=== PATIENT | male | born 1980 | race African-American/Black ===

== ENCOUNTER 2020-03-21 18:30 | Emergency (ER) | payer BC ==
[~2020-03-21] VITALS: Ht 165.1 cm; Wt 65.0 kg
[2020-03-21 19:41] LABS: BASO # 0.1 x10^3/uL (0.0-0.2); BASO % 1 % (0-3); EOS # 0.1 x10^3/uL (0.0-0.7); EOS % 1 % (0-3); HEMATOCRIT 38.5 % (39.0-53.0); LYMPH # 2.3 x10^3/uL (1.0-4.8); LYMPH % 36 % (24-48); MEAN CORPUSCULAR HEMOGLOBIN 33 pg (25-35); MEAN CORPUSCULAR HGB CONC 34 g/dL (31-37); MEAN CORPUSCULAR VOLUME 97 fL (79-100); MONO # 0.4 x10^3/uL (0.0-1.1); MONO % 6 % (0-9); NEUT # 3.6 x10^3/uL (1.8-7.7); NEUT % 56 % (31-73); PLATELET COUNT 243 x10^3/uL (140-400); RED BLOOD COUNT 3.96 x10^6/uL (4.30-5.70); RED CELL DISTRIBUTION WIDTH 13.7 % (11.5-14.5); WHITE BLOOD COUNT 6.4 x10^3/uL (4.0-11.0)
[2020-03-21 19:52] LABS: CREATININE 0.9 mg/dL (0.7-1.3); GFR 93.5; POTASSIUM 3.7 mmol/L (3.5-5.1)
[2020-03-21 19:58] LABS: ALBUMIN/GLOBULIN RATIO 0.8 (1.0-1.7); MAGNESIUM 2.2 mg/dL (1.8-2.4); TOTAL BILIRUBIN 0.4 mg/dL (0.2-1.0); TOTAL PROTEIN 6.9 g/dL (6.4-8.2)
[2020-03-21] MEDS ORDERED: NITROGLYCERIN SUBLINGUAL 0.4 MG BOTTLE OF 25. SL PRN (20:00)
[2020-03-21] MEDS ORDERED: ASPIRIN 325 MG TABLET PO ONE (20:00)
[2020-03-21] MEDS ORDERED: MORPHINE SULFATE 2 MG/ML VIAL. IV/SQ PRN (20:00)
--- NOTE | 2020-03-21 20:15 | PHYS DOC ---
Past Medical History Past Medical History: No Pertinent History Past Surgical History: No Surgical History Smoking Status: Current Every Day Smoker Alcohol Use: Occasionally General Adult EDM: Chief Complaint: CHEST PAIN HPI: HPI: Patient is a 40 year old male with history of smoking who presents the ED today complaining of 5 out of 10 squeezing left-sided chest pain that radiated to his neck and left arm that occurred yesterday at 10 PM. Patient states he was laying in bed when he experienced the pain. He states he has history of similar pain before and it went away on its own. He states the pain went away last night after a couple minutes. He states he is in the ED because the wanted him to be evaluated. Currently he is denying pain in the ED. Denies any cough or shortness of breath. Review of Systems: Review of Systems: Constitutional: Denies fever or chills. [] Eyes: Denies change in visual acuity. [] HENT: Denies nasal congestion or sore throat. [] Respiratory: Denies cough or shortness of breath. [] Cardiovascular: Patient reports chest pain GI: Denies abdominal pain, nausea, vomiting, bloody stools or diarrhea. [] : Denies dysuria. [] Musculoskeletal: Denies back pain or joint pain. [] Integument: Denies rash. [] Neurologic: Denies headache, focal weakness or sensory changes. [] Psychiatric: Denies depression or anxiety. [] Heart Score: HEART Score for Chest Pain: HEART Score for Chest Pain Response (Comments) Value History Slighlty/Non-Suspicious 0 ECG Normal 0 Age < 45 0 Risk Factors No Risk Factors 0 Troponin < Normal Limit 0 Total 0 Risk Factors: Risk Factors: DM, Current or recent (<one month) smoker, HTN, HLP, family history of CAD, obesity. Risk Scores: Score 0 - 3: 2.5% MACE over next 6 weeks - Discharge Home Score 4 - 6: 20.3% MACE over next 6 weeks - Admit for Clinical Observation Score 7 - 10: 72.7% MACE over next 6 weeks - Early Invasive Strategies Current Medications: Current Medications Medications (Trade) Dose Ordered Sig/Servando Start Time Stop Time Status Last Admin Dose Admin Aspirin (Stephanie Aspirin) 325 mg 1X ONCE 03/21/20 20:00 03/21/20 20:01 DC 11/23/20 19:39 325 MG Morphine Sulfate (Morphine Sulfate) 2 mg PRN Q15MIN PRN 03/21/20 20:00 03/22/20 19:59 Nitroglycerin (Nitrostat) 0.4 mg PRN Q5MIN PRN 03/21/20 20:00 03/22/20 19:59 Allergies: Allergies: Allergies Coded Allergies Type Severity Reaction Last Updated Verified No Known Drug Allergies 03/21/20 No Physical Exam: PE: Constitutional: Well developed, well nourished, no acute distress, non-toxic appearance. [] HENT: Normocephalic, atraumatic, bilateral external ears normal, oropharynx moist, no oral exudates, nose normal. [] Eyes: PERRLA, EOMI, conjunctiva normal, no discharge. [] Neck: Normal range of motion, no tenderness, supple, no stridor. [] Cardiovascular:Heart rate regular rhythm, no murmur [] Lungs & Thorax: Bilateral breath sounds clear to auscultation [] Abdomen: Bowel sounds normal, soft, no tenderness, no masses, no pulsatile masses. [] Skin: Warm, dry, no erythema, no rash. [] Back: No tenderness, no CVA tenderness. [] Extremities: No tenderness, no cyanosis, no clubbing, ROM intact, no edema. [] Neurologic: Alert and oriented X 3, normal motor function, normal sensory function, no focal deficits noted. [] Psychologic: Affect normal, judgement normal, mood normal. [] Current Patient Data: Labs: Laboratory Tests Test 03/21/20 19:33 White Blood Count 6.4 x10^3/uL (4.0-11.0) Red Blood Count 3.96 x10^6/uL (4.30-5.70) L Hemoglobin 13.0 g/dL (13.0-17.5) Hematocrit 38.5 % (39.0-53.0) L Mean Corpuscular Volume 97 fL (79-100) Mean Corpuscular Hemoglobin 33 pg (25-35) Mean Corpuscular Hemoglobin Concent 34 g/dL (31-37) Red Cell Distribution Width 13.7 % (11.5-14.5) Platelet Count 243 x10^3/uL (140-400) Neutrophils (%) (Auto) 56 % (31-73) Lymphocytes (%) (Auto) 36 % (24-48) Monocytes (%) (Auto) 6 % (0-9) Eosinophils (%) (Auto) 1 % (0-3) Basophils (%) (Auto) 1 % (0-3) Neutrophils # (Auto) 3.6 x10^3/uL (1.8-7.7) Lymphocytes # (Auto) 2.3 x10^3/uL (1.0-4.8) Monocytes # (Auto) 0.4 x10^3/uL (0.0-1.1) Eosinophils # (Auto) 0.1 x10^3/uL (0.0-0.7) Basophils # (Auto) 0.1 x10^3/uL (0.0-0.2) D-Dimer (Linda) < 0.27 ug/mlFEU Sodium Level 140 mmol/L (136-145) Potassium Level 3.7 mmol/L (3.5-5.1) Chloride Level 105 mmol/L (98-107) Carbon Dioxide Level 29 mmol/L (21-32) Anion Gap 6 (6-14) Blood Urea Nitrogen 11 mg/dL (8-26) Creatinine 0.9 mg/dL (0.7-1.3) Estimated GFR (Cockcroft-Gault) 93.5 BUN/Creatinine Ratio 12 (6-20) Glucose Level 98 mg/dL (70-99) Calcium Level 9.0 mg/dL (8.5-10.1) Magnesium Level 2.2 mg/dL (1.8-2.4) Total Bilirubin 0.4 mg/dL (0.2-1.0) Aspartate Amino Transferase (AST) 21 U/L (15-37) Alanine Aminotransferase (ALT) 26 U/L (16-63) Alkaline Phosphatase 89 U/L (46-116) Troponin I Quantitative < 0.017 ng/mL (0.000-0.055) UW-Vzf-V-Type Natriuretic Peptide 56 pg/mL (0-124) Total Protein 6.9 g/dL (6.4-8.2) Albumin 3.0 g/dL (3.4-5.0) L Albumin/Globulin Ratio 0.8 (1.0-1.7) L Thyroid Stimulating Hormone (TSH) 0.232 uIU/mL (0.358-3.74) L Laboratory Tests 03/21/20 19:33 Laboratory Tests 03/21/20 19:33 Vital Signs: Vital Signs Date Time Temp Pulse Resp B/P (MAP) Pulse Ox O2 Delivery O2 Flow Rate FiO2 03/21/20 19:18 98.1 77 24 128/76 (93) 97 Room Air 98.1 EKG: EK interpreted by Dr. Rivera sinus rhythm HR 75 no STEMI[] Radiology/Procedures: Radiology/Procedures: []PROCEDURE: CHEST AP ONLY CHEST AP ONLY Clinical History: Reason: left sided chest pain x2 days / Spl. Instructions: / History: Technique: AP view of the chest was obtained at 03/21/2020 7:27 PM. Comparison: None. Findings: The cardiomediastinal silhouette is normal. The pulmonary vasculature is normal. There is patchy opacities in the lung bases and mild elevation of the left hemidiaphragm. Impression: Basal infiltrates could be discoid atelectasis or pneumonia. Electronically signed by: Lakeisha Troncoso III, MD (03/21/2020 8:13 PM) [facility] DICTATED and SIGNED BY: LAKEISHA TRONCOSO III, MD DATE: 03/21/[id number] 0 Course & Med Decision Making: Course & Med Decision Making Pertinent Labs and Imaging studies reviewed. (See chart for details) This is a 40-year-old male patient presenting to the ED today with left-sided chest pain that occurred yesterday. EKG is negative, troponin is normal, CBC CMP with no acute findings. Chest x-ray interpreted by radiologist was noted for possible bilateral pneumonia. Patient was tested for Covid, started on Rocephin and azithromycin. Vitals are stable with O2 sats above 96% on room air. Was discharged to home. Instructed to quarantine himself until he gets results. Provided return precautions and discharged in stable condition. Dragon Disclaimer: Dragon Disclaimer: This electronic medical record was generated, in whole or in part, using a voice recognition dictation system. Departure Departure Impression: Primary Impression: Person under investigation for COVID-19 Additional Impressions: Bilateral pulmonary infiltrates on chest x-ray Chest pain Qualified Codes: R07.9 - Chest pain, unspecified Disposition: 01 DC HOME SELF CARE/HOMELESS Condition: STABLE Referrals: EHNRIQUE BURKS MD follow up in one week Patient Instructions: Chest Pain (Nonspecific), [id number], Pneumonia, Adult Additional Instructions: You were evaluated in the emergency room for chest pain, you have possible pneumonia showing on chest xray. We will put you on antibiotics, take them as prescribed. You were tested for COVID-19, quarantine yourself until you hear f rom us with the results. Come back to the ED at any point symptoms worsen otherwise follow-up with the assistant operator provided and your primary care doctor Scripts Azithromycin (AZITHROMYCIN TABLET) 250 Mg Tablet 1 PKG PO UD for 5 Days, #6 TAB 0 Refills 2 the first day followed by 1 for days 2-5 Prov: CLAU FARMER APRN 03/21/20 CLAU FARMER APRN Mar 21, 2020 20:15
[2020-03-21 20:19] LABS: BILIRUBIN,URINE NEGATIVE (NEG); CLARITY,URINE CLOUDY; COLOR,URINE YELLOW; NITRITE,URINE NEGATIVE (NEG); PROTEIN,URINE NEGATIVE (NEG-TRACE)
[2020-03-21 20:26] LABS: AMPHETAMINE/METHAMPHETAMINE NEG (NEG); BARBITURATES NEG (NEG); BENZODIAZEPINES NEG (NEG); CANNABINOIDS POS (NEG); COCAINE NEG (NEG); METHADONE NEG (NEG); OPIATES NEG (NEG); PHENCYCLIDINE NEG (NEG)
[2020-03-21 20:28] LABS: BACTERIA,URINE 0 /HPF (0-FEW)
[2020-03-21] MEDS ORDERED: AZITHRMYCN 500MG IVPB FOR OMNI 250 ML IV ONE (20:30)
[2020-03-21] MEDS ORDERED: cefTRIAXone IV Push 1 GM VIAL. IVP ONE (20:30)
[2020-03-21 21:00] VITALS: BP 108/84
[2020-03-21] MEDS ORDERED: AZIT250T6 PO (21:14)
--- NOTE | 2020-03-22 11:35 | EKG ---
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
== END 2020-03-21 21:54 | disposition home or self-care (01) ==
LOC: ER 18:30
DX: R07.89 Other chest pain (principal); Z20.828 Contact with and (suspected) exposure to other viral communicable diseases; R91.8 Other nonspecific abnormal finding of lung field; F17.200 Nicotine dependence, unspecified, uncomplicated
CPT/HCPCS: 36415; 71045; 80053; 80307; 81001; 83735; 83880; 84443; 84484; 85025; 85379; 87426; 93005; 96365; 96375; 99285; J0456; J0696; U0003; C9803

== ENCOUNTER 2020-08-28 04:21 | Emergency (ER) | payer BC ==
[~2020-08-28] VITALS: Ht 165.1 cm; Wt 66.0 kg
[~2020-08-28 04:21] MED LIST: AZIT250T6 PO
--- NOTE | 2020-08-28 04:36 | PHYS DOC ---
Past Medical History Past Medical History: No Pertinent History (YOHANNES UMANA DO) Past Surgical History: No Surgical History (YOHANNES UMANA DO) Smoking Status: Current Every Day Smoker Alcohol Use: Occasionally (YOHANNES UMANA DO) General Adult EDM: Chief Complaint: NAUSEA/VOMITING/DIARRHEA HPI: HPI: Patient is a 40-year-old male presenting for abdominal pain. Onset was approximately 48 hours ago, states he binge drink heavily Saturday evening. Denies alcohol dependence or abuse, does admit to occasionally binge drinking. Reports drinking a large amount of tequila, beer and other alcohols. States he woke up extremely hung over with abdominal pain and ongoing nausea with numerous episodes of nonbloody nonbilious emesis. He has been unable to tolerate p.o. intake. He has not drink any alcohol since Saturday evening, has no history of alcohol withdrawals or delirium tremens. No prior abdominal surgeries, no recent fever, travel, or sick contacts (YOHANNES UMANA DO) Review of Systems: Review of Systems: Fourteen body systems of review of systems have been reviewed. See HPI for pertinent positives and negative responses, other peñaloza all other systems are negative, non-pertinent or non-contributory (YOHANNES UMANA DO) Heart Score: C/O Chest Pain: No HEART Score for Chest Pain: HEART Score for Chest Pain Response (Comments) Value History Slighlty/Non-Suspicious 0 ECG Normal 0 Age < 45 0 Risk Factors No Risk Factors 0 Troponin < Normal Limit 0 Total 0 Risk Factors: Risk Factors: DM, Current or recent (<one month) smoker, HTN, HLP, family history of CAD, obesity. Risk Scores: Score 0 - 3: 2.5% MACE over next 6 weeks - Discharge Home Score 4 - 6: 20.3% MACE over next 6 weeks - Admit for Clinical Observation Score 7 - 10: 72.7% MACE over next 6 weeks - Early Invasive Strategies (YOHANNES UMANA DO) Allergies: Allergies: Allergies Coded Allergies Type Severity Reaction Last Updated Verified No Known Drug Allergies 03/21/20 No (YOHANNES UMANA DO) Physical Exam: PE: Constitutional: Well developed, well nourished, no acute distress, non-toxic appearance. HENT: Normocephalic, atraumatic, bilateral external ears normal, oropharynx moist, no oral exudates, nose normal. Eyes: PERRLA, EOMI, conjunctiva normal, no discharge. Neck: Normal range of motion, no tenderness, supple, no stridor. Cardiovascular: Heart rate regular, sinus rhythm, no murmurs rubs or gallops Lungs & Thorax: Bilateral breath sounds clear to auscultation Abdomen: Bowel sounds normal, soft, no tenderness, no masses, no pulsatile masses. Nonsurgical abdomen, no peritoneal signs Skin: Warm, dry, no erythema, no rash. Back: No tenderness, no CVA tenderness. Extremities: No tenderness, no cyanosis, no clubbing, ROM intact, no edema. Neurologic: Alert and oriented X 3, grossly normal motor & sensory function, no focal deficits noted. Psychologic: Affect normal, judgement normal, mood normal. (YOHANNES UMANA DO) Current Patient Data: Labs: Laboratory Tests Test 08/28/20 04:50 White Blood Count 8.7 x10^3/uL Red Blood Count 4.62 x10^6/uL Hemoglobin 15.1 g/dL Hematocrit 44.7 % Mean Corpuscular Volume 97 fL Mean Corpuscular Hemoglobin 33 pg Mean Corpuscular Hemoglobin Concent 34 g/dL Red Cell Distribution Width 13.5 % Platelet Count 342 x10^3/uL Neutrophils (%) (Auto) 76 % Lymphocytes (%) (Auto) 15 % Monocytes (%) (Auto) 9 % Eosinophils (%) (Auto) 0 % Basophils (%) (Auto) 0 % Neutrophils # (Auto) 6.6 x10^3/uL Lymphocytes # (Auto) 1.3 x10^3/uL Monocytes # (Auto) 0.8 x10^3/uL Eosinophils # (Auto) 0.0 x10^3/uL Basophils # (Auto) 0.0 x10^3/uL Sodium Level 143 mmol/L Potassium Level 3.7 mmol/L Chloride Level 98 mmol/L Carbon Dioxide Level 25 mmol/L Anion Gap 20 Blood Urea Nitrogen 23 mg/dL Creatinine 1.2 mg/dL Estimated GFR (Cockcroft-Gault) 81.1 BUN/Creatinine Ratio 19 Glucose Level 137 mg/dL Calcium Level 9.2 mg/dL Total Bilirubin 0.6 mg/dL Aspartate Amino Transf (AST/SGOT) 40 U/L Alanine Aminotransferase (ALT/SGPT) 46 U/L Alkaline Phosphatase 98 U/L Troponin I Quantitative < 0.017 ng/mL Total Protein 7.9 g/dL Albumin 4.0 g/dL Albumin/Globulin Ratio 1.0 Lipase 104 U/L Ethyl Alcohol Level < 10 mg/dL Current Medications Medications (Trade) Dose Ordered Sig/Servando Route PRN Reason Start Time Stop Time Status Last Admin Dose Admin Sodium Chloride 1,000 ml @ 0 mls/hr 1X ONCE IV 08/28/20 04:45 08/28/20 04:46 DC 08/28/20 05:06 Ondansetron HCl (Zofran) 4 mg 1X ONCE IVP 08/28/20 05:00 08/28/20 05:01 DC 08/28/20 05:05 Fentanyl Citrate (Fentanyl 2ml Vial) 50 mcg 1X ONCE IVP 08/28/20 05:15 08/28/20 05:16 DC 08/28/20 05:19 Iohexol (Omnipaque 300 Mg/ml) 75 ml 1X ONCE IV 08/28/20 05:30 08/28/20 05:33 DC 08/28/20 05:50 Info (CONTRAST GIVEN -- Rx MONITORING) 1 each PRN DAILY PRN MC SEE COMMENTS 08/28/20 05:45 08/30/20 05:44 Vital Signs: Vital Signs Date Time Temp Pulse Resp B/P (MAP) Pulse Ox O2 Delivery O2 Flow Rate FiO2 08/28/20 05:19 20 99 Room Air Vital Signs Date Time Temp Pulse Resp B/P (MAP) Pulse Ox O2 Delivery O2 Flow Rate FiO2 08/28/20 05:19 20 99 Room Air (YOHANNES UMANA DO) EKG: EKG: EKG ordered and interpreted by myself at 0451 hrs. as sinus rhythm at 46 bpm, unremarkable intervals, left axis deviation, no acute ischemic findings, no STEMI (YOHANNES UMANA DO) Radiology/Procedures: Radiology/Procedures: INDICATION: Reason: N/V / Spl. Instructions: / History: COMPARISON: February 2020 FINDINGS: Single view of chest obtained. No focal airspace consolidation. Cardiomediastinal contour unremarkable. No acute osseous abnormality. IMPRESSION: * No focal airspace consolidation or edema. Electronically signed by: Campos Donahue MD (08/28/2020 5:21 AM) [id number] ///////////////////////////// INDICATION: Reason: EPIGASTRIC AP, N/V/D, OMNI 300, 75 ML IV / Spl. Instructions: / History: . COMPARISON: None. TECHNIQUE: Axial CT images obtained through the abdomen and pelvis with contrast. One or more of the following individualized dose reduction techniques were utilized for this examination: 1. Automated exposure control; 2. Adjustment of the mA and/or kV according to patient size; 3. Use of iterative reconstruction technique. FINDINGS: Mild basilar atelectasis. Scattered calcific atherosclerosis without abdominal aortic aneurysm. Liver is mildly low density. Nonspecific but can be seen with mild fatty infiltration. The pancreas enhances. Spleen is not enlarged. No hydronephrosis. Urinary bladder is partially distended. The patient has very little intra-abdominal fat which limits evaluation. The appendix is not well seen secondary to lack of adjacent fat and unopacified loops of bowel in the region. There are some scattered fluid-filled loops of small bowel seen without a high-grade transition point to suggest obstruction. Degenerative changes of the spine. 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 Sclerotic lesion at the left proximal femur measuring approximately 17 mm. IMPRESSION: * There is some fluid-filled mildly prominent loops of small bowel but no high- grade transition point to suggest obstruction. * The appendix is not well seen secondary to lack of intra-abdominal fat as well as unopacified loops of bowel in the right lower quadrant. * No hydronephrosis. * Sclerotic lesion at the left proximal femur. Nonspecific appearance with common causes including chondroid matrix lesion, bone infarct or bone island. Electronically signed by: Campos Donahue MD (08/28/2020 6:04 AM) [id number] (YOHANNES UMANA DO) Radiology/Procedures: INDICATION: Reason: EPIGASTRIC AP, N/V/D, OMNI 300, 75 ML IV / Spl. Instructions: / History: . COMPARISON: None. TECHNIQUE: Axial CT images obtained through the abdomen and pelvis with contrast. One or more of the following individualized dose reduction techniques were utilized for this examination: 1. Automated exposure control; 2. Adjustment of the mA and/or kV according to patient size; 3. Use of iterative reconstruction technique. FINDINGS: Mild basilar atelectasis. Scattered calcific atherosclerosis without abdominal aortic aneurysm. Liver is mildly low density. Nonspecific but can be seen with mild fatty infiltration. The pancreas enhances. Spleen is not enlarged. No hydronephrosis. Urinary bladder is partially distended. The patient has very little intra-abdominal fat which limits evaluation. The appendix is not well seen secondary to lack of adjacent fat and unopacified loops of bowel in the region. There are some scattered fluid-filled loops of small bowel seen without a high-grade transition point to suggest obstruction. Degenerative changes of the spine. 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 Sclerotic lesion at the left proximal femur measuring approximately 17 mm. IMPRESSION: * There is some fluid-filled mildly prominent loops of small bowel but no high- grade transition point to suggest obstruction. * The appendix is not well seen secondary to lack of intra-abdominal fat as well as unopacified loops of bowel in the right lower quadrant. * No hydronephrosis. * Sclerotic lesion at the left proximal femur. Nonspecific appearance with common causes including chondroid matrix lesion, bone infarct or bone island. (TEJA CUNNINGHAM MD) Course & Med Decision Making: Course & Med Decision Making Hemodynamically stable patient presenting with HPI concerning for abdominal pain with nausea and vomit status post binge drinking, physical exam nonconcerning for emergent or surgical findings IV established, IV fluid rehydration and 4 mg morphine administered ER work-up obtained and pending full completion at time of my signout to oncoming physician. Patient pending second liter of IV normal saline fluid rehydration. Please defer to oncoming physician's documentation regarding future care of patient while in our ER (YOHANNES UMANA DO) Course & Med Decision Making Accepted care at shift change, patient pending second liter of fluids. Patient tolerating p.o. (TEJA CUNNINGHAM MD) Dragon Disclaimer: Dragon Disclaimer: This electronic medical record was generated, in whole or in part, using a voice recognition dictation system. (YOHANNES UMANA DO) Departure Departure Impression: Primary Impression: Nausea & vomiting Disposition: 01 HOME / SELF CARE / HOMELESS Condition: STABLE Referrals: Dhaval WILKINSON MD (PCP) Patient Instructions: Nausea and Vomiting Scripts Ondansetron (ONDANSETRON ODT) 4 Mg Tab.rapdis 1 TAB PO PRN Q6-8HRS PRN for NAUSEA for 3 Days, #8 TAB Prov: TEJA CUNNINGHAM MD 08/28/20 YOHANNES UMANA DO August 28, 2020 04:36 TEJA CUNNINGHAM MD August 28, 2020 07:29
[2020-08-28] MEDS ORDERED: IV NORMAL SALINE 1000ML BAG 1,000 ML IV ONE ×2 (04:45→06:30)
[2020-08-28] MEDS ORDERED: ONDANSETRON PF 4 MG/2 ML VIAL. IVP ONE (05:00)
[2020-08-28 05:06] LABS: BASO % 0 % (0-3); EOS % 0 % (0-3); HEMATOCRIT 44.7 % (39.0-53.0); HEMOGLOBIN 15.1 g/dL (13.0-17.5); LYMPH # 1.3 x10^3/uL (1.0-4.8); LYMPH % 15 % (24-48); MEAN CORPUSCULAR HEMOGLOBIN 33 pg (25-35); MEAN CORPUSCULAR HGB CONC 34 g/dL (31-37); MEAN CORPUSCULAR VOLUME 97 fL (79-100); MONO # 0.8 x10^3/uL (0.0-1.1); MONO % 9 % (0-9); NEUT # 6.6 x10^3/uL (1.8-7.7); NEUT % 76 % (31-73); PLATELET COUNT 342 x10^3/uL (140-400); RED BLOOD COUNT 4.62 x10^6/uL (4.30-5.70); RED CELL DISTRIBUTION WIDTH 13.5 % (11.5-14.5); WHITE BLOOD COUNT 8.7 x10^3/uL (4.0-11.0)
[2020-08-28] MEDS ORDERED: fentaNYL PF VIAL 100 MCG/2 ML VIAL IVP ONE (05:15)
[2020-08-28 05:20] LABS: CALCIUM 9.2 mg/dL (8.5-10.1); CREATININE 1.2 mg/dL (0.7-1.3); GFR 81.1; POTASSIUM 3.7 mmol/L (3.5-5.1)
--- NOTE | 2020-08-28 05:23 | RAD ---
INDICATION: Reason: N/V / Spl. Instructions: / History: COMPARISON: February 2020 FINDINGS: Single view of chest obtained. No focal airspace consolidation. Cardiomediastinal contour unremarkable. No acute osseous abnormality. IMPRESSION: * No focal airspace consolidation or edema. Electronically signed by: Campos Donahue MD (08/28/2020 5:21 AM) [id number]
[2020-08-28 05:26] LABS: TOTAL BILIRUBIN 0.6 mg/dL (0.2-1.0); TOTAL PROTEIN 7.9 g/dL (6.4-8.2)
--- NOTE | 2020-08-28 05:27 | EKG ---
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
[2020-08-28] MEDS ORDERED: IOHEXOL 300 MG/ML 100ML VIAL. IV ONE (05:30)
[2020-08-28] MEDS ORDERED: CONTRAST GIVEN. MC PRN (05:45)
--- NOTE | 2020-08-28 06:07 | RAD ---
INDICATION: Reason: EPIGASTRIC AP, N/V/D, OMNI 300, 75 ML IV / Spl. Instructions: / History: . COMPARISON: None. TECHNIQUE: Axial CT images obtained through the abdomen and pelvis with contrast. One or more of the following individualized dose reduction techniques were utilized for this examinat ion: 1. Automated exposure control; 2. Adjustment of the mA and/or kV according to patient size; 3 . Use of iterative reconstruction technique. FINDINGS: Mild basilar atelectasis. Scattered calcific atherosclerosis without abdominal aortic aneurysm. Liver is mildly low density. Nonspecific but can be seen with mild fatty infiltration. The pancreas enhances. Spleen is not enlarged. No hydronephrosis. Urinary bladder is partially distended. The patient has very little intra-abdominal fat which limits evaluation. The appendix is not well see n secondary to lack of adjacent fat and unopacified loops of bowel in the region. There are some scat tered fluid-filled loops of small bowel seen without a high-grade transition point to suggest obstruc tion. Degenerative changes of the spine. 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 Sclerotic lesion at the left proximal femur measuring approximately 17 mm. IMPRESSION: * There is some fluid-filled mildly prominent loops of small bowel but no high-grade transition poin t to suggest obstruction. * The appendix is not well seen secondary to lack of intra-abdominal fat as well as unopacified loop s of bowel in the right lower quadrant. * No hydronephrosis. * Sclerotic lesion at the left proximal femur. Nonspecific appearance with common causes including c hondroid matrix lesion, bone infarct or bone island. Electronically signed by: Campos Donahue MD (08/28/2020 6:04 AM) [id number]
[2020-08-28 07:06] VITALS: BP 144/79
[2020-08-28 07:09] LABS: BILIRUBIN,URINE NEGATIVE (NEG); CLARITY,URINE CLEAR; COLOR,URINE YELLOW; NITRITE,URINE NEGATIVE (NEG); PROTEIN,URINE 30 mg/dL (NEG-TRACE); UROBILINOGEN,URINE 0.2 mg/dL (0.2 mg/dL)
[2020-08-28 07:20] LABS: BACTERIA,URINE 0 /HPF (0-FEW); RBC,URINE 0 /HPF (0-2); WBC,URINE 0 /HPF (0-4)
[2020-08-28] MEDS ORDERED: ONDA4TAB12 PO (07:29)
== END 2020-08-28 07:45 | disposition home or self-care (01) ==
LOC: ER 04:21
DX: R11.2 Nausea with vomiting, unspecified (principal); R10.9 Unspecified abdominal pain; F17.200 Nicotine dependence, unspecified, uncomplicated
CPT/HCPCS: 36415; 71045; 74177; 80053; 81001; 83690; 84484; 85025; 93005; 96374; 96375; 99285; G0480; J2405; J3010; J7030; Q9967